=== PATIENT | female | born 1985 | race Hispanic/Latino ===

== ENCOUNTER 2017-05-04 08:09 | Inpatient (IN) | payer BC ==
[2017-05-04] MEDS ORDERED: Valproate 500 MG in Sodium Chloride 0.9% 100 ML IVPB STA (09:34)
[2017-05-04] MEDS ORDERED: Magnesium Sulfate 2 gm/50 ml 2 GM/50 ML BAG IVPB STA (09:34)
[2017-05-04] MEDS ORDERED: Dexamethasone 10 MG in Sodium Chloride 0.9% 50 ML IV STA ×2 (09:34→16:26)
[2017-05-04] MEDS ORDERED: Sodium Chloride 0.9% 1,000 ML IV STA (09:35)
--- NOTE | 2017-05-04 09:42 | ED PDOC ---
HPI: Headache Time Seen by Provider: 05/04/17 09:09 Chief Complaint (Nursing): Headache Chief Complaint (Provider): Headache History Per: Patient History/Exam Limitations: no limitations Onset/Duration Of Symptoms: Other (x since Wednesday) Current Symptoms Are (Timing): Still Present Associated Symptoms: Photophobia Additional Complaint(s): Ms. Tejdea is a 32 year old female, with a history of migraines, who presents to the ED complaining of headache since Wednesday. Typical of usual migraines. ( +): photophobia, nausea. (-): vomiting. Patient was told by Dr. Sumner to come to ER. Patient states she took advil, imitrex and excedrin without relief. PMD: Winston Sumner Past Medical History Reviewed: Historical Data, Nursing Documentation, Vital Signs Vital Signs: Last Vital Signs Temp 97.0 F L 05/04/17 08:25 Pulse 69 05/04/17 08:25 Resp 16 05/04/17 08:25 BP 137/87 05/04/17 08:25 Pulse Ox 100 05/04/17 08:25 - Medical History PMH: Migraine Denies: Chronic Kidney Disease - Family History Family History: States: Unknown Family Hx - Social History Alcohol: None Drugs: Denies - Immunization History Hx Tetanus Toxoid Vaccination: No Hx Influenza Vaccination: No Hx Pneumococcal Vaccination: No - Home Medications Home Medications: Ambulatory Orders Medication Instructions Recorded Acetaminophen/Oxycodone Hydr 5 - 325 mg PO Q4 PRN 12/08/13 [Percocet 325 mg-5 mg] Docusate Sodium [Colace] 100 mg PO PRN 12/08/13 Norethindrone-E.estradiol-Iron [Lo 1 tab PO DAILY 12/08/13 Loestrin Fe 10 Mcg-75 mg-1 mg] Topiramate [Topamax] 100 mg PO DAILY 12/08/13 - Allergies Allergies/Adverse Reactions: Allergies Allergy/AdvReac Type Severity Reaction Status Date / Time No Known Allergies Allergy Verified 12/06/13 13:34 Review of Systems ROS Statement: Except As Marked, All Systems Reviewed And Found Negative Eyes: Positive for: Other (Photophobia) Gastrointestinal: Positive for: Nausea. Negative for: Vomiting Neurological: Positive for: Headache Physical Exam - Reviewed Nursing Documentation Reviewed: Yes Vital Signs Reviewed: Yes - Physical Exam Appears: Positive for: In Acute Distress (Moderate) Head Exam: Positive for: ATRAUMATIC, NORMAL INSPECTION, NORMOCEPHALIC Skin: Positive for: Normal Color, Warm, Dry Eye Exam: Positive for: Normal appearance, EOMI, PERRL ENT: Positive for: Normal ENT Inspection Neck: Positive for: Normal Cardiovascular/Chest: Positive for: Regular Rate, Rhythm Respiratory: Positive for: Normal Breath Sounds. Negative for: Respiratory Distress Gastrointestinal/Abdominal: Positive for: Normal Exam Back: Positive for: Normal Inspection Extremity: Positive for: Normal ROM. Negative for: Deformity Neurologic/Psych: Positive for: Alert, Oriented (x 3) - ECG O2 Sat by Pulse Oximetry: 100 (RA) Pulse Ox Interpretation: Normal - Physician Consult Information Time Consulting Physican Contacted: 09:15 Physician Contacted: Winston Sumner Outcome Of Conversation: Recommends 10 mg Decadron IV, 2 g MgSO4 anbd 500 mg Depakote. If pt feels better after meds, can d/c home to follow-up in office next week. Medical Decision Making Medical Decision Making: Time:09:34 Impression(s): Migraine Plan: - ED Urine - Decadron Inj - Magnesium Sulfate 2 gm Sodium Chloride 0.9% 100 ml IVPB STAT - Sodium Chloride 0.9% 1,000 ml IV 1,000 mls/hr - Depacon Inj 500 mg Sodium Chloride 0.9% 100 ml IVPB STAT 09:[address] Sumner. Re-evaluation Patient re-evaluated. No change in pain level. CTA Head and neck ordered. Scribe Attestation: Documented by Walker Henley, acting as a scribe for Alejandra Grimaldo MD Provider Scribe Attestation: All medical record entries made by the Scribe were at my direction and personally dictated by me. I have reviewed the chart and agree that the record accurately reflects my personal performance of the history, physical exam, medical decision making, and the department course for this patient. I have also personally directed, reviewed, and agree with the discharge instructions and disposition. Disposition - Disposition Forms: [employer] (Icelandic)
[2017-05-04] MEDS ORDERED: Magnesium Sulfate 2 gm/50 ml 2 GM/50 ML BAG ONE ×2 (10:55→16:27)
[2017-05-04] MEDS ORDERED: Dexamethasone 4 mg/1 ml ONE (16:29)
[2017-05-04] MEDS ORDERED: Magnesium Sulfate 2 gm/50 ml 2 GM/50 ML BAG IV STA (16:31)
[2017-05-04 16:53] LABS: BASO % 0.2 % (0.0-2.0); EOS % 0.1 % (0.0-4.0); HEMOGLOBIN 12.2 g/dL (12.0-16.0); LYMPH # 0.6 K/uL (1.0-4.3); LYMPH % 12.8 % (20.0-40.0); MEAN CELL VOLUME 91.5 fl (81.0-99.0); MEAN CORPUSCULAR HEMOGLOBIN 31.2 pg (27.0-31.0); MEAN CORPUSCULAR HGB CONC 34.1 g/dL (33.0-37.0); MEAN PLATELET VOLUME 8.6 fl (7.2-11.7); MONO % 0.8 % (0.0-10.0); NEUT # 4.4 K/uL (1.8-7.0); NEUT % 86.1 % (50.0-75.0); RBC 3.91 Mil/uL (3.80-5.20); RED CELL DISTRIBUTION WIDTH 13.4 % (11.5-14.5); WHITE BLOOD COUNT 5.1 K/uL (4.8-10.8)
[2017-05-04 17:07] LABS: ALB/GLOB RATIO 1.2 (1.0-2.1); ALBUMIN 3.7 g/dL (3.5-5.0); ALT/SGPT 13 U/L (9-52); AST/SGOT 18 U/L (14-36); BLOOD UREA NITROGEN 11 mg/dl (7-17); CALCIUM 8.4 mg/dL (8.4-10.2); GFR AFRICAN-AMERICAN > 60; GFR NON-AFRICAN AMERICAN > 60
--- NOTE | 2017-05-04 17:37 | ED PDOC ---
- Laboratory Results Result Diagrams: 05/04/17 16:50 05/04/17 16:50 - ECG O2 Sat by Pulse Oximetry: 100 (RA) Pulse Ox Interpretation: Normal Medical Decision Making Medical Decision Makin:00 Patient with intractable headache, and multiple meds given in ER as directed by Dr. Sumner to Dr. Grimaldo, was signed out to me by Dr. Grimaldo. Patient is pending additional IV medications and CT. Scribe Attestation: Documented by Yakelin Hackett acting as a scribe for Nupur Terrazas MD. Scribe Attestation: All medical record entries made by the Scribe were at my direction and personally dictated by me. I have reviewed the chart and agree that the record accurately reflects my personal performance of the history, physical exam, medical decision making, and the department course for this patient. I have also personally directed, reviewed, and agree with the discharge instructions and disposition. Disposition - Disposition Forms: [employer] ([place]ican)
[2017-05-04] MEDS ORDERED: Iodixanol 320 MG/ML 100 ML BOTTLE IV ONE (18:40)
[2017-05-04] MEDS ORDERED: Sodium Chloride 0.9% 100 ML ONE (18:40)
--- NOTE | 2017-05-04 21:00 | CT ---
EXAM: CT Angiography Head With Intravenous Contrast CT Angiography Neck With Intravenous Contrast EXAM DATE/TIME: 05/04/2017 2:55 PM CLINICAL HISTORY: 32 years old, female; Pain; Headache; Additional info: Intractable headache. Sent phy. Doc. TECHNIQUE: Axial computed tomographic angiography images of the head and neck with intravenous contrast using CT angiography protocol. All CT scans at this facility use one or more dose reduction techniques, viz.: automated exposure control; ma/kV adjustment per patient size (including targeted exams where dose is matched to indication; i.e. head); or iterative reconstruction technique. All CT scans at this facility use one or more dose reduction techniques, viz.: automated exposure control; ma/kV adjustment per patient size (including targeted exams where dose is matched to indication; i.e. head); or iterative reconstruction technique. MIP reconstructed images were created and reviewed. Coronal and sagittal reformatted images were created and reviewed. CONTRAST: 80 mL of [id number] administered intravenously. COMPARISON: No relevant prior studies available. FINDINGS: HEAD: RIGHT ANTERIOR CEREBRAL ARTERY: No evidence of occlusion. No aneurysm visualized. RIGHT MIDDLE CEREBRAL ARTERY: No evidence of occlusion. No aneurysm visualized. RIGHT POSTERIOR CEREBRAL ARTERY: No evidence of occlusion. No aneurysm visualized. LEFT ANTERIOR CEREBRAL ARTERY: No evidence of occlusion. No aneurysm visualized. LEFT MIDDLE CEREBRAL ARTERY: No evidence of occlusion. No aneurysm visualized. LEFT POSTERIOR CEREBRAL ARTERY: No evidence of occlusion. No aneurysm visualized. BASILAR ARTERY: No evidence of occlusion or significant stenosis. No aneurysm visualized. NECK: RIGHT COMMON CAROTID ARTERY: No evidence of occlusion or significant stenosis. No evidence of dissection. RIGHT INTERNAL CAROTID ARTERY: No significant plaque identified. No evidence of occlusion. No aneurysm visualized. RIGHT EXTERNAL CAROTID ARTERY: No evidence of occlusion. RIGHT VERTEBRAL ARTERY: No evidence of occlusion or significant stenosis. No evidence of dissection. LEFT COMMON CAROTID ARTERY: No evidence of occlusion or significant stenosis. No evidence of dissection. LEFT INTERNAL CAROTID ARTERY: No significant plaque identified. No evidence of occlusion. No aneurysm visualized. LEFT EXTERNAL CAROTID ARTERY: No evidence of occlusion. LEFT VERTEBRAL ARTERY: No evidence of occlusion or significant stenosis. No evidence of dissection. HEAD and NECK: BONES/JOINTS: No acute bony abnormality identified. SOFT TISSUES: No acute abnormality of the visualized soft tissues seen. CAROTID STENOSIS REFERENCE USING NASCET CRITERIA: % ICA stenosis = (1 - narrowest ICA diameter/diameter of distal cervical ICA) x 100. Mild - <50% stenosis. Moderate - 50-69% stenosis. Severe - 70-94% stenosis. Near occlusion - 95-99% stenosis. Occluded - 100% stenosis. IMPRESSION: - Unremarkable exam. No evidence of occlusion or other acute abnormality of the major intracranial or neck arteries. - See above for remaining findings.
[2017-05-04] MEDS ORDERED: Ketamine 50 mg/ml Inj (10 ml) IVPB ONE (21:03)
[2017-05-04] MEDS ORDERED: Ketamine 50 mg/ml Inj (10 ml) IV ONE (21:30)
--- NOTE | 2017-05-04 22:21 | CP.PCM.CON ---
History of Present Illness - History of Present Illness History of Present Illness: attending: Rickey Eugene MD PCP: Rimma Mcknight MD Neurologist: Dr Sumner Reason for consult: Critical care management Chief complaint: Headache The patient was seen and examined in the ICU HPI: 32 years old female with hx of Migraine, comes with 6 days of persistent, throbbing frontal headache, not relieved with Advil, Imitres nor Excedrin. this is associated with nausea and Photophobia but no vomiting . In the ED she was given Toradol, tramadol, Valproate, Magnesium and Decadron without relief. at Present the headache is 8/. 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 absent: Anorexia, Chills, Fever, Frequent Falls, Lethargy - EENT Eyes: Requires Corrective Lenses. absent: Diplopia, Floaters, Spots in Vision Ears: absent: Decreased Hearing, Ear Discharge, Ear Pain, Tinnitus Nose/Mouth/Throat: absent: Epistaxis, Nasal Congestion, Nasal Discharge, Sinus Pain, Sinus Pressure - Cardiovascular Cardiovascular: absent: Chest Pain, Dyspnea, Edema - Respiratory Respiratory: absent: Cough, Dyspnea, Wheezing, Chest Congestion - Gastrointestinal Gastrointestinal: Constipation, Nausea. absent: Abdominal Pain, Diarrhea, Vomiting - Genitourinary Genitourinary: absent: Dysuria, Flank Pain, Hematuria, Urinary Frequency - Musculoskeletal Musculoskeletal: absent: Arthralgias, Back Pain, Muscle Cramps, Muscle Weakness - Integumentary Integumentary: absent: Pruritus, Rash, Skin Ulcer, Sores, Striae, Swelling - Neurological Neurological: Headaches. absent: Confusion, Dizziness, Numbness, Focal Weakness , Loss of Vision, Paresthesias, Weakness - Psychiatric Psychiatric: absent: Anxiety, Depression, Panic Attacks - Endocrine Endocrine: absent: Palpitations, Polydipsia, Polyphagia, Polyuria - Hematologic/Lymphatic Hematologic: absent: Easy Bleeding, Easy Bruising Past Patient History - Past Medical History & Family History Past Medical History?: No - Past Social History Smoking Status: Former Smoker Chewing Tobacco Use: No Cigar Use: No Alcohol: None Drugs: Denies Home Situation {Lives}: With Family - CARDIAC Hx Cardiac Disorders: No - PULMONARY Hx Respiratory Disorders: No - NEUROLOGICAL Hx Migraine: Yes - HEENT Hx HEENT Problems: No - RENAL Hx Chronic Kidney Disease: No - ENDOCRINE/METABOLIC Hx Endocrine Disorders: No - HEMATOLOGICAL/ONCOLOGICAL Hx Blood Disorders: No - INTEGUMENTARY Hx Dermatological Problems: No Other/Comment: chicken pox - MUSCULOSKELETAL/RHEUMATOLOGICAL Hx Musculoskeletal Disorders: No - GASTROINTESTINAL Hx Gastrointestinal Disorders: No - GENITOURINARY/GYNECOLOGICAL Hx Genitourinary Disorders: No Other/Comment: IUD implant - PSYCHIATRIC Hx Psychophysiologic Disorder: No Hx Substance Use: No - SURGICAL HISTORY Hx Surgeries: No - ANESTHESIA Hx Anesthesia: No Meds Allergies/Adverse Reactions: Allergies Allergy/AdvReac Type Severity Reaction Status Date / Time No Known Allergies Allergy Verified 12/06/13 13:34 Physical Exam - Constitutional Appears: No Acute Distress - Head Exam Head Exam: ATRAUMATIC, NORMAL INSPECTION, NORMOCEPHALIC - Eye Exam Eye Exam: EOMI, Normal appearance Pupil Exam: NORMAL ACCOMODATION, PERRL - ENT Exam ENT Exam: Mucous Membranes Moist, Normal External Ear Exam, Normal Oropharynx, TM's Normal Bilaterally - Neck Exam Neck exam: Positive for: Full Rom, Normal Inspection. Negative for: Lymphadenopathy, Tenderness - Respiratory Exam Respiratory Exam: Clear to Auscultation Bilateral. absent: Rales, Rhonchi, Wheezes - Cardiovascular Exam Cardiovascular Exam: REGULAR RHYTHM, RRR, +S1, +S2 - GI/Abdominal Exam GI & Abdominal Exam: Normal Bowel Sounds, Soft. absent: Mass, Organomegaly, Tenderness - Rectal Exam Rectal Exam: Deferred - Extremities Exam Extremities exam: Positive for: full ROM, normal inspection. Negative for: calf tenderness, pedal edema - Back Exam Back exam: NORMAL INSPECTION. absent: CVA tenderness (L), CVA tenderness (R) - Neurological Exam Neurological exam: Alert, CN II-XII Intact, Oriented x3, Reflexes Normal - Psychiatric Exam Psychiatric exam: Normal Affect, Normal Mood - Skin Skin Exam: Dry, Intact, Normal Color, Warm Results - Vital Signs Recent Vital Signs: Last Vital Signs Temp 97.0 F L 05/04/17 08:25 Pulse 64 05/04/17 21:03 Resp 21 05/04/17 21:03 BP 108/63 05/04/17 21:03 Pulse Ox 100 05/04/17 21:03 - Labs Result Diagrams: 05/04/17 16:50 05/04/17 16:50 Labs: Laboratory Results - last 24 hr 05/04/17 05/04/17 16:50 16:50 WBC 5.1 RBC 3.91 Hgb 12.2 Hct 35.8 MCV 91.5 MCH 31.2 H MCHC 34.1 RDW 13.4 Plt Count 245 MPV 8.6 Neut % (Auto) 86.1 H Lymph % (Auto) 12.8 L [place] % (Auto) 0.8 Eos % (Auto) 0.1 Baso % (Auto) 0.2 Neut # (Auto) 4.4 Lymph # (Auto) 0.6 L [place] # (Auto) 0.0 Eos # (Auto) 0.0 Baso # (Auto) 0.0 Sodium 142 Potassium 3.8 Chloride 108 H Carbon Dioxide 18 L Anion Gap 20 BUN 11 Creatinine 0.6 L Est GFR ( Amer) > 60 Est GFR (Non-Af Amer) > 60 Random Glucose 190 H Calcium 8.4 Total Bilirubin 0.3 AST 18 ALT 13 Alkaline Phosphatase 51 Total Protein 6.8 Albumin 3.7 Globulin 3.1 Albumin/Globulin Ratio 1.2 - Imaging and Cardiology CTA head and Neck Status: Image reviewed by me, Report reviewed by me Additional comment: EXAM: CT Angiography Head With Intravenous Contrast CT Angiography Neck With Intravenous Contrast EXAM DATE/TIME: 05/04/2017 2:55 PM FINDINGS: HEAD: RIGHT ANTERIOR CEREBRAL ARTERY: No evidence of occlusion. No aneurysm visualized. RIGHT MIDDLE CEREBRAL ARTERY: No evidence of occlusion. No aneurysm visualized. RIGHT POSTERIOR CEREBRAL ARTERY: No evidence of occlusion. No aneurysm visualized. LEFT ANTERIOR CEREBRAL ARTERY: No evidence of occlusion. No aneurysm visualized. LEFT MIDDLE CEREBRAL ARTERY: No evidence of occlusion. No aneurysm visualized. LEFT POSTERIOR CEREBRAL ARTERY: No evidence of occlusion. No aneurysm visualized. BASILAR ARTERY: No evidence of occlusion or significant stenosis. No aneurysm visualized. NECK: RIGHT COMMON CAROTID ARTERY: No evidence of occlusion or significant stenosis. No evidence of dissection. RIGHT INTERNAL CAROTID ARTERY: No significant plaque identified. No evidence of occlusion. No aneurysm visualized. RIGHT EXTERNAL CAROTID ARTERY: No evidence of occlusion. RIGHT VERTEBRAL ARTERY: No evidence of occlusion or significant stenosis. No evidence of dissection. LEFT COMMON CAROTID ARTERY: No evidence of occlusion or significant stenosis. No evidence of dissection. LEFT INTERNAL CAROTID ARTERY: No significant plaque identified. No evidence of occlusion. No aneurysm visualized. LEFT EXTERNAL CAROTID ARTERY: No evidence of occlusion. LEFT VERTEBRAL ARTERY: No evidence of occlusion or significant stenosis. No evidence of dissection. HEAD and NECK: BONES/JOINTS: No acute bony abnormality identified. SOFT TISSUES: No acute abnormality of the visualized soft tissues seen. CAROTID STENOSIS REFERENCE USING NASCET CRITERIA: % ICA stenosis = (1 - narrowest ICA diameter/diameter of distal cervical ICA) x 100. Mild - <50% stenosis. Moderate - 50-69% stenosis. Severe - 70-94% stenosis. Near occlusion - 95-99% stenosis. Occluded - 100% stenosis. IMPRESSION: - Unremarkable exam. No evidence of occlusion or other acute abnormality of the major intracranial or neck arteries. - See above for remaining findings Assessment & Plan - Assessment and Plan (Free Text) Assessment: #. Intractible Headache #. Hyperglycemia Plan: 32 years old female with hx of Migraine, comes with 6 days of persistent, throbbing frontal headache, not relieved with Advil, Imitres nor Excedrin. this is associated with nausea and Photophobia but no vomiting . In the ED she was given Toradol, tramadol, Valproate, Magnesium and Decadron without relief. at Present the headache is 8/10. #. Intractible Headache which probably by now is rebound headache Will hold off analgesics and consult Neurology. CTA of Head and neck IMPRESSION: - Unremarkable exam. No evidence of occlusion or other acute abnormality of the major intracranial or neck arteries. - Dr Sumner neurology on consult - Neurology ordered Ketamine IV drip - Reglan for nausea and vomits #. Hyperglycemia - Follow HbA1c - follow Blood Glucose #. DVT prophylaxis with Lovenox #. Code Status: Full - Date & Time Date: 05/04/17 Time: 22:21
--- NOTE | 2017-05-04 22:47 | CP.PCM.CON ---
History of Present Illness - History of Present Illness History of Present Illness: Ms. Alcantar is a 32-year-old woman with a past medical history of migraine headaches, who is well known to me, and called my office yesterday after she has been suffering with an intractable migraine headache for the last 4 days. She states that it has been becoming progressively worse and has not responded to Imitrex, Excedrine or other medications. She has nausea, vomiting, photophobia, and the headache is located bifrontally with a pulsating quality. She came to the ED and was treated with two rounds of Decadron, Magnesium Sulfate and Depakote IV, without any relief. She was subsequently given Reglan , Toradol and Tramadol, but still no relief. CTA of the head/neck was done to rule out vasoconstriction syndromes and did not show any significant pathology. Review of Systems - Review of Systems All systems: reviewed and no additional remarkable complaints except Past Patient History - Past Medical History & Family History Past Medical History?: No - Past Social History Alcohol: None Drugs: Denies - CARDIAC Hx Cardiac Disorders: No - PULMONARY Hx Respiratory Disorders: No - NEUROLOGICAL Hx Migraine: Yes - HEENT Hx HEENT Problems: No - RENAL Hx Chronic Kidney Disease: No - ENDOCRINE/METABOLIC Hx Endocrine Disorders: No - HEMATOLOGICAL/ONCOLOGICAL Hx Blood Disorders: No - INTEGUMENTARY Hx Dermatological Problems: No Other/Comment: chicken pox - MUSCULOSKELETAL/RHEUMATOLOGICAL Hx Musculoskeletal Disorders: No - GASTROINTESTINAL Hx Gastrointestinal Disorders: No - GENITOURINARY/GYNECOLOGICAL Hx Genitourinary Disorders: No Other/Comment: IUD implant - PSYCHIATRIC Hx Psychophysiologic Disorder: No Hx Substance Use: No - SURGICAL HISTORY Hx Surgeries: No - ANESTHESIA Hx Anesthesia: No Meds Allergies/Adverse Reactions: Allergies Allergy/AdvReac Type Severity Reaction Status Date / Time No Known Allergies Allergy Verified 12/06/13 13:34 Physical Exam - Neurological Exam Neurological exam: Alert, CN II-XII Intact, Normal Gait, Oriented x3, Reflexes Normal Results - Vital Signs Recent Vital Signs: Last Vital Signs Temp 98.1 F 05/04/17 21:10 Pulse 70 05/04/17 21:10 Resp 16 05/04/17 21:10 BP 109/69 05/04/17 21:10 Pulse Ox 99 05/04/17 21:10 - Labs Result Diagrams: 05/04/17 16:50 05/04/17 16:50 Labs: Laboratory Results - last 24 hr 05/04/17 05/04/17 16:50 16:50 WBC 5.1 RBC 3.91 Hgb 12.2 Hct 35.8 MCV 91.5 MCH 31.2 H MCHC 34.1 RDW 13.4 Plt Count 245 MPV 8.6 Neut % (Auto) 86.1 H Lymph % (Auto) 12.8 L [place] % (Auto) 0.8 Eos % (Auto) 0.1 Baso % (Auto) 0.2 Neut # (Auto) 4.4 Lymph # (Auto) 0.6 L [place] # (Auto) 0.0 Eos # (Auto) 0.0 Baso # (Auto) 0.0 Sodium 142 Potassium 3.8 Chloride 108 H Carbon Dioxide 18 L Anion Gap 20 BUN 11 Creatinine 0.6 L Est GFR ( Amer) > 60 Est GFR (Non-Af Amer) > 60 Random Glucose 190 H Calcium 8.4 Total Bilirubin 0.3 AST 18 ALT 13 Alkaline Phosphatase 51 Total Protein 6.8 Albumin 3.7 Globulin 3.1 Albumin/Globulin Ratio 1.2 Assessment & Plan (1) Intractable migraine Assessment and Plan: The patient continues to suffer from severe migraine headaches despite several attempts with IV infusions. At this point, I would like to admit her and start ketamine for severe intractable pain. I recommend we start with 0.1 mg/min and titrate up to 0.5 mg/min overnight to effect. If she develops hallucinations, or other symptoms, we will titrate down. Check vital signs and neuro-exam Q4. Continue NS at 100 mL/hr. We will plan on continuing Ketamine infusion for at least 8 hours. Please call my cell phone if there are any issues: [phone]. Thank you. Status: Acute Priority: High
[2017-05-05 01:03] VITALS: BMI 22.6
[2017-05-05] MEDS ORDERED: Ketamine 50 mg/ml Inj (10 ml) IVPB ONE (05:25)
[2017-05-05] MEDS ORDERED: SODIUM CHLORIDE 0.9% IVPB ONE (05:45)
[2017-05-05] MEDS ORDERED: KETAMINE IVPB ONE (05:45)
[2017-05-05 05:49] LABS: BLOOD UREA NITROGEN 13 mg/dl (7-17); CALCIUM 8.6 mg/dL (8.4-10.2); GFR AFRICAN-AMERICAN > 60; GFR NON-AFRICAN AMERICAN > 60
[2017-05-05] MEDS ORDERED: Enoxaparin 40 mg Syringe SC SCH (09:00)
[2017-05-05] MEDS ORDERED: Sodium Chloride 0.9% 1,000 ML IV SCH (09:00)
--- NOTE | 2017-05-05 10:01 | CP.PCM.DIS ---
Provider - Provider Date of Admission: 05/04/17 20:18 Attending physician: Rickey Eugene MD Time Spent in preparation of Discharge (in minutes): 30 Diagnosis - Discharge Diagnosis (1) Intractable migraine Status: Acute Priority: High Hospital Course - Lab Results Lab Results: Most Recent Lab Values WBC 5.1 K/uL (4.8-10.8) 05/04/17 16:50 RBC 3.91 Mil/uL (3.80-5.20) 05/04/17 16:50 Hgb 12.2 g/dL (12.0-16.0) 05/04/17 16:50 Hct 35.8 % (34.0-47.0) 05/04/17 16:50 MCV 91.5 fl (81.0-99.0) 05/04/17 16:50 MCH 31.2 pg (27.0-31.0) H 05/04/17 16:50 MCHC 34.1 g/dL (33.0-37.0) 05/04/17 16:50 RDW 13.4 % (11.5-14.5) 05/04/17 16:50 Plt Count 245 K/uL (130-400) 05/04/17 16:50 MPV 8.6 fl (7.2-11.7) 05/04/17 16:50 Neut % (Auto) 86.1 % (50.0-75.0) H 05/04/17 16:50 Lymph % (Auto) 12.8 % (20.0-40.0) L 05/04/17 16:50 [place] % (Auto) 0.8 % (0.0-10.0) 05/04/17 16:50 Eos % (Auto) 0.1 % (0.0-4.0) 05/04/17 16:50 Baso % (Auto) 0.2 % (0.0-2.0) 05/04/17 16:50 Neut # (Auto) 4.4 K/uL (1.8-7.0) 05/04/17 16:50 Lymph # (Auto) 0.6 K/uL (1.0-4.3) L 05/04/17 16:50 [place] # (Auto) 0.0 K/uL (0.0-0.8) 05/04/17 16:50 Eos # (Auto) 0.0 K/uL (0.0-0.7) 05/04/17 16:50 Baso # (Auto) 0.0 K/uL (0.0-0.2) 05/04/17 16:50 Sodium 143 mmol/l (132-148) 05/05/17 04:30 Potassium 3.8 MMOL/L (3.6-5.0) 05/05/17 04:30 Chloride 114 mmol/L (98-107) H 05/05/17 04:30 Carbon Dioxide 18 mmol/L (22-30) L 05/05/17 04:30 Anion Gap 15 (10-20) 05/05/17 04:30 BUN 13 mg/dl (7-17) 05/05/17 04:30 Creatinine 0.5 mg/dl (0.7-1.2) L 05/05/17 04:30 Est GFR ( Amer) > 60 05/05/17 04:30 Est GFR (Non-Af Amer) > 60 05/05/17 04:30 Random Glucose 111 mg/dL (65-105) H 05/05/17 04:30 Calcium 8.6 mg/dL (8.4-10.2) 05/05/17 04:30 Total Bilirubin 0.3 mg/dl (0.2-1.3) 05/04/17 16:50 AST 18 U/L (14-36) 05/04/17 16:50 ALT 13 U/L (9-52) 05/04/17 16:50 Alkaline Phosphatase 51 U/L (38-126) 05/04/17 16:50 Total Protein 6.8 G/DL (6.3-8.2) 05/04/17 16:50 Albumin 3.7 g/dL (3.5-5.0) 05/04/17 16:50 Globulin 3.1 gm/dL (2.2-3.9) 05/04/17 16:50 Albumin/Globulin Ratio 1.2 (1.0-2.1) 05/04/17 16:50 - Hospital Course Hospital Course: headaches and nausea resolved with iv ketamine Discharge Exam - Head Exam Head Exam: ATRAUMATIC, NORMAL INSPECTION, NORMOCEPHALIC - Eye Exam Eye Exam: EOMI, Normal appearance, PERRL Pupil Exam: NORMAL ACCOMODATION, PERRL - GI/Abdominal Exam GI & Abdominal Exam: Normal Bowel Sounds - Rectal Exam Rectal Exam: NORMAL INSPECTION - Neurological Exam Neurological exam: Alert, CN II-XII Intact, Normal Gait, Oriented x3, Reflexes Normal - Psychiatric Exam Psychiatric exam: Normal Affect, Normal Mood - Skin Skin Exam: Dry, Intact, Normal Color, Warm Discharge Plan - Follow Up Plan Condition: GOOD Disposition: HOME/ ROUTINE Patient education suggested?: Yes Additional Instructions: discharge today follow up with dr fenton
--- NOTE | 2017-05-05 10:16 | CP.PCM.PN ---
Subjective - Date & Time of Evaluation Date of Evaluation: 05/05/17 Time of Evaluation: 10:13 - Subjective Subjective: Ms. Alcantar was seen and examined at the bedside in ICU. She is alert, oriented in all spheres. She denies any headache with pain scale of 0/10, but complains of nausea, mild vision impairment, and mild lightheadedness.She is current receiving Ketamine infusion at 0.05 mg/ min. She is able to follow all commands. There was no untoward events overnight. Objective - Vital Signs/Intake and Output Vital Signs (last 24 hours): Temp Pulse Resp BP Pulse Ox 98.1 F 82 22 121/73 98 05/05/17 08:00 05/05/17 08:00 05/05/17 08:00 05/05/17 08:00 05/05/17 08:00 Intake and Output: 05/05/17 05/05/17 06:59 18:59 Intake Total 348 Balance 348 - Medications Medications: Current Medications Enoxaparin Sodium (Lovenox) 40 mg SC DAILY JACKY PRN Reason: Protocol Last Admin: 05/05/17 08:57 Dose: 40 mg Ketamine HCl 50 mg/ Sodium (Chloride) 50 mls @ 5.4 mls/hr IVPB ONCE ONE PRN Reason: Protocol Stop: 05/05/17 15:00 Last Admin: 05/05/17 06:04 Dose: 5.4 mls/hr Sodium Chloride (Sodium Chloride 0.9%) 1,000 mls @ 100 mls/hr IV .Q10H JACKY Stop: 05/06/17 09:00 Last Admin: 05/05/17 09:10 Dose: 100 mls/hr Metoclopramide HCl (Reglan) 5 mg IVP Q6 PRN PRN Reason: Nausea/Vomiting Last Admin: 05/05/17 08:57 Dose: 5 mg - Labs Labs: 05/04/17 16:50 05/05/17 04:30 - Constitutional Appears: No Acute Distress - Head Exam Head Exam: NORMAL INSPECTION - Neurological Exam Neurological Exam: Alert, Awake, Oriented x3 Neuro motor strength exam: Left Upper Extremity: 5, Right Upper Extremity: 5, Left Lower Extremity: 5, Right Lower Extremity: 5 Additional comments: She is alert, oriented x 3, follows all commands, Sensation is intact. Assessment and Plan (1) Intractable migraine Assessment & Plan: Case discussed with Dr. Sumner, recommend discontinue Ketamine infusion, start on Normal saline at 100 ml/hr until discharge. May discharge to home with previous home medications and symptom free in 6 hours post Ketamine infusion. Follow up with Dr. Sumner after her vacation. Status: Acute
--- NOTE | 2017-05-05 11:02 | HP ---
HISTORY OF PRESENT ILLNESS: Ms. Alcantar is a 32-year-old female who was admitted to the Intensive Care Unit because of intractable headache requiring IV ketamine drip. She has had a history of recurrent migraine headaches for the past several years, but it got worse over the past several days. She had received medications by her neurologist, but symptoms, however, persisted. She was therefore admitted to the Intensive Care Unit for IV ketamine drip. She feels much better after receiving IV ketamine. Vital signs are stable. FAMILY HISTORY: Non-revealing. SOCIAL HISTORY: She does not drink or smoke. She is a nurse at [employer], [place]. PHYSICAL EXAMINATION: VITAL SIGNS: Remarkable for blood pressure of 121/73, pulse of 82, respiratory rate of 22. She is febrile. O2 sat 98% on room air. SKIN: Shows fair turgor. HEENT: Pupils are equal and reactive to light and accommodation. NECK: JVP flat. Mouth shows fair hygiene. LUNG: Clear. HEART: Regular, no murmurs or gallops. ABDOMEN: Soft and nontender, no organomegaly. EXTREMITIES: Shows no edema or cyanosis. CENTRAL NERVOUS SYSTEM: Exam grossly intact. LABORATORY DATA: Already reviewed and unremarkable. IMPRESSION: Severe intractable migraine headaches. PLAN: The plan is the patient can be discharged today on magnesium oxide p.r.n., Fioricet with Codeine p.r.n. for severe headaches and Medrol Dosepak as directed. She will follow up with as an outpatient. Rickey Eugene MD
[2017-05-05 11:43] VITALS: RESP 18
[2017-05-05 12:30] VITALS: TEMP 98.4
[2017-05-05 14:37] VITALS: O2SAT 100
[2017-05-06 11:05] VITALS: BP 104/62; PULSE 66
== END 2017-05-05 15:27 | disposition home or self-care (01) | DRG 103 ==
LOC: H.ER 08:09 → H.ERHOLD 20:18 → H.ICU/CCU 21:45
PROVIDERS: ADMIT Internal Medicine Pulmonary Disease; ATTEND Internal Medicine Pulmonary Disease
DX: G43.919 Migraine, unspecified, intractable, without status migrainosus (principal); H54.7 Unspecified visual loss; R73.9 Hyperglycemia, unspecified; Z87.891 Personal history of nicotine dependence